=== PATIENT | male | born 1955 ===

== ENCOUNTER 2017-09-16 10:05 | Day surgery (SDC) | payer BC ==
[2017-09-16] VITALS (9 sets, daily range): BP systolic 121–148; BP diastolic 65–82
[~2017-09-16] VITALS: Ht 170.2 cm; Wt 79.4 kg
--- NOTE | 2017-09-16 09:55 | Short Stay Surgery H&P ---
History of Present Illness History of Present Illness Chief Complaint Screening for colon CA. HPI Timothy Cherry is a 61 year old male who was admitted on for Screening Colonoscopy Patient History Allergies: Coded Allergies: No Known Allergies (Unverified , 09/15/17) PAST MEDICAL HISTORY: Past Surgeries: Social History: Medication History Scheduled No Known Medications* (NKM - No Known Medications*), 0 ., (Reported) Review of Systems Cardiovascular: Reports: no symptoms Respiratory: Reports: no symptoms Skeletal: Reports: no symptoms Gastrointestinal: Reports: no symptoms Genitourinary: Reports: no symptoms Neurologic: Reports: no symptoms Endocrine: Reports: no symptoms Hematologic: Reports: no symptoms Physical Exam Skin: normal HENT: normal Heart: normal Lungs: normal Abdomen: normal Extremities: normal Genitourinary: normal Plan Plan of Care Total colonoscopy. Preop Interventions None. Summary of Findings See the report. Final Diagnosis: Attestation Are the patient's medical conditions optimized for surgery? Attestation Response: yes PADMA GOODSON Sep 16, 2017 09:55
[~2017-09-16 10:05] MED LIST: LR 1000ml 1,000 ML IVLG ONE; NKM
--- NOTE | 2017-09-16 10:06 | Pre-Procedure Note/Attestation ---
Pre-Procedure Note/Attestation Complete Prior to Procedure Planned Procedure: left Procedure Narrative: Endoscopic examination of the colon Indications for Procedure Pre-Operative Diagnosis: R/O colon polyps/ CA Attestation I attest that I discussed the nature of the procedure; its benefits; risks and complications; and alternatives (and the risks and benefits of such alternatives ), prior to the procedure, with the patient (or the patient's legal field support representative). I attest that, if there was a reasonable possibility of needing a blood transfusion, the patient (or the patient's legal field support representative) was given the [facility] standardized written summary, pursuant to the [place] Blood Safety Act ([place] Health and Safety Code # 1645, as amended). I attest that I re-evaluated the patient just prior to the surgery and that there has been no change in the patient's H&P, except as documented below: KELLEE,SAID Sep 16, 2017 10:06
[2017-09-16] MEDS ORDERED: Lidocaine 1% MPF 10mg/ml 5ml ONE (10:20)
[2017-09-16] MEDS ORDERED: LR 1000ml ONE (10:20)
[2017-09-16] MEDS ORDERED: Propofol 200mg/20ml IV ONE (10:20)
[2017-09-16] MEDS ORDERED: LR 1000ml 1,000 ML IVLG SCH (10:35)
--- NOTE | 2017-09-16 10:35 | Anethesia Preoperative Eval ---
Anesthesia Pre-op PMH/ROS General Date of Evaluation: Sep 16, 2017 Time of Evaluation: 10:20 Anesthesiologist: rob ASA Score: ASA 2 Mallampati Score Class I : Soft palate, uvula, fauces, pillars visible Class II: Soft palate, uvula, fauces visible Class III: Soft palate, base of uvula visible Class IV: Only hard plate visible Mallampati Classification: Class II Surgeon: lester Diagnosis: colon screening Surgical Procedure: colonoscopy Anesthesia History: none Family History: no anesthesia problems Allergies: Coded Allergies: No Known Allergies (Unverified , 09/15/17) Medications: see eMAR Past Medical History Cardiovascular: Reports: other - hypercholesterolemia Anesthesia Pre-op Phys. Exam Physician Exam Constitutional: NAD Neurologic: CN 2-12 intact Cardiovascular: RRR Respiratory: CTA Gastrointestinal: S/NT/ND Airway Exam Mallampati Score: Class II MO: full Neck: supple TMD: 2fb ROM: full Teeth: intact Anesthesia Pre-op A/P Risk Assessment & Plan Assessment: asa2 Plan: mac Status Change Before Surgery: No Pre-Antibiotics Drug: BALDOMERO Chi Sep 16, 2017 10:35
[2017-09-16] MEDS ORDERED: Atropine Inj 1mg/10ml Syr IV PRN (10:45)
[2017-09-16] MEDS ORDERED: DiphenhydrAMINE 50mg/ml Inj IVP PRN (10:45)
[2017-09-16] MEDS ORDERED: fentaNYL 100 mcg/2 mL IV PRN (10:45)
[2017-09-16] MEDS ORDERED: Midazolam 2mg/2ml Inj IVP PRN (10:45)
--- NOTE | 2017-09-16 10:50 | Endoscopy Procedure Note ---
Endoscopy Procedure Note Indication for Procedure: Screening colonoscopy Procedures Performed: colonoscopy - Completely Normal Total Colonoscopy. Specimen: none Pt Tolerated Procedure Well: Yes Estimated Blood Loss: none Anesthesiologist: Dr. Mancuso Anesthesia: moderate sedation Medication Given: see anesthesia record Implant(s) used?: No 50 yrs or older w/o bx or poly: Yes 10yrs. F/U not recommended: Yes 18 years or older w/prev. colo: No <3yrs. since last colonoscopy: No Med reason:<3 yrs.: System Reason:<3 yrs.: PADMA GOODSON Sep 16, 2017 10:50
--- NOTE | 2017-09-16 10:52 | Discharge Instructions ---
Discharge Instructions Discharge Instructions Follow up with: No need to folllow with docotor. For Congestive Heart Failure Reminder Report to your physician any weight gain of 5 pounds or more in one week. PADMA GOODSON Sep 16, 2017 10:52
--- NOTE | 2017-09-16 11:09 | Immediate Post-Op Evaluation ---
Immediate Post-Op Evalulation Immediate Post-Op Evalulation Procedure: colonoscopy Date of Evaluation: Sep 16, 2017 Time of Evaluation: 11:09 IV Fluids: 100ml lr Blood Products: none Estimated Blood Loss: negligible Blood Pressure Systolic: 121 Blood Pressure Diastolic: 77 Pulse Rate: 64 Respiratory Rate: 18 O2 Sat by Pulse Oximetry: 98 Temperature (Fahrenheit): 97.8 Pain Score (1-10): 0 Nausea: No Vomiting: No Complications none Patient Status: awake, reacts, patent Hydration Status: adequate Drug: BALDOMERO Chi Sep 16, 2017 11:09
--- NOTE | 2017-09-16 11:15 | 48 Hour Post Anesthesia Eval ---
Post Anesthesia Evaluation Procedure: colonoscopy Date of Evaluation: Sep 16, 2017 Time of Evaluation: 11:14 Blood Pressure Systolic: 127 0: 75 Pulse Rate: 56 Respiratory Rate: 18 Temperature (Fahrenheit): 97.8 O2 Sat by Pulse Oximetry: 100 Airway: patent Nausea: No Vomiting: No Pain Intensity: 0 Hydration Status: adequate Cardiopulmonary Status: stable Mental Status/LOC: patient returned to baseline Post-Anesthesia Complications: none Follow-up care needed: N/A BALDOMERO ROMERO Sep 16, 2017 11:15
--- NOTE | 2017-09-16 21:02 | Procedure Note ---
DATE OF PROCEDURE: 09/16/2017 PROCEDURE: Total screening colonoscopy. SURGEON: Chava Vickers M.D. PREOPERATIVE DIAGNOSIS: Screening colonoscopy. POSTOPERATIVE DIAGNOSIS: Completely normal total colonoscopy. MEDICATION USED: Per Dr. Mancuso, anesthesiologist. INSTRUMENT: GIF Olympus video colonoscope. DESCRIPTION OF PROCEDURE: The patient, after arriving endoscopy unit, was told about risks and benefits of the procedure, which he accepted and signed informed consent. He was then put in the left lateral decubitus position. After adequate IV sedation, the scope was gently passed through the anal area and examination of this section did not reveal any pathology. No major hemorrhoids, tumors, polyps, etc. At this time, the scope was passed through normal looking rectum, introduced into the rectosigmoid area, and gradually advanced toward the left descending colon, the splenic flexure, transverse colon, hepatic flexure, and finally was guided into the right colon and all the way to the base of the cecum. All these areas remained completely normal without any particular pathology such as tumors, polyps, inflammatory process, ulcers, etc. The colon cleanup was excellent. At this time upon reaching to the base of the cecum and visualizing the appendiceal opening, the scope was gradually withdrawn within 6 minutes and evaluation did not reveal any other abnormalities. The patient tolerated the procedure well and left the endoscopy room in a good condition. Chava Vickers M.D. DR: DAVID JOB#: [id number] CC:
== END 2017-09-16 12:10 | disposition home or self-care (01) ==
LOC: SUR 10:05
DX: Z12.11 Encounter for screening for malignant neoplasm of colon (principal)
CPT/HCPCS: 45378; J2704; J7120; 94003; 94150